=== PATIENT | male | born 1955 | race Caucasian/White ===

== ENCOUNTER 2017-05-19 08:14 | Day surgery (SDC) | payer BC ==
[2017-05-18 09:55] VITALS: BMI 29.5
[~2017-05-19 08:14] MED LIST: LACTATED RINGERS 1,000 ML IV SCH
[2017-05-19 08:40] VITALS: RESP 16; TEMP 98.2
[2017-05-19] MEDS ORDERED: LIDOCAINE 1% 20 ML VIAL (10MG/ML) FOR IV START INTRADERMA ONE (08:49)
[2017-05-19] MEDS ORDERED: LIDOCAINE 1% INJ 10MG/ML (20 ML MDV) ONE (09:33)
[2017-05-19] MEDS ORDERED: PROPOFOL 10 MG/ML 20 ML VIAL IV ONE (09:33)
--- NOTE | 2017-05-19 10:30 | P.PCN ---
Date of Procedure: 05/19/17 Procedure(s) Performed: Procedure: Total colonoscopy. Preoperative diagnosis: History of polyps and weight loss. Postoperative diagnosis: Diverticulosis with no evidence of acute diverticulitis , strictures, polyps or cancer. Preparation: HalfLytely prep. Sedation: Was provided by anesthesia. Brief clinical history: The patient is a 61-year-old male who is referred for this evaluation because of unexplained weight loss of close to 20 pounds. The patient has history of polyps. His last colonoscopy was in December 2012. Procedure: With the patient on his left lateral decubitus position and after informed consent and adequate sedation, the perianal area was inspected and it did not show any fissures or fistulas. There were no masses felt on digital rectal examination. The Olympus CFQ 160L video colonoscope was then inserted in the rectum in the usual fashion and advanced to the cecum. There were multiple diverticular orifices seen scattered in the sigmoid as well as few on the right side and around the hepatic flexure with no evidence of acute diverticulitis or strictures. The mucosa appeared healthy. No polyps or tumors were seen or other pathology. I retroflexed the endoscope in the rectum before the endoscope was withdrawn. The patient tolerated the procedure well. Plan: The patient was reassured. Discussed dietary measures. He will follow up with you early next week as planned and I suggested repeat colonoscopy in 5 years. Further workup for his weight loss will be planned and I will be happy to see him in the future if needed.
[2017-05-19 10:39] VITALS: BP 117/68; PULSE 51
== END 2017-05-19 10:40 | disposition home or self-care (01) ==
LOC: ORWHC2ENDO 08:14
DX: K57.30 Diverticulosis of large intestine without perforation or abscess without bleeding (principal); R63.4 Abnormal weight loss; Z86.010 Personal history of colon polyps; I10 Essential (primary) hypertension; Z79.899 Other long term (current) drug therapy; Z79.82 Long term (current) use of aspirin
CPT/HCPCS: 45378; J2001; J2704

== ENCOUNTER → 2017-12-02 | Outpatient (CLI) | payer BC ==
[2017-12-02 09:17] LABS: Calcium 9.1 mg/dL (8.4-10.2); Carbon Dioxide 27 mmol/L (22-30); Chloride 106 mmol/L (98-107); Phosphorus 3.4 mg/dL (2.5-4.5)
== END | disposition home or self-care (01) ==
LOC: LABWHC1 07:30
PROVIDERS: ATTEND Urology
DX: N20.0 Calculus of kidney (principal)
CPT/HCPCS: 36415; 82310; 82374; 82435; 82565; 83970; 84100; 84550

== ENCOUNTER → 2018-03-01 | Outpatient (CLI) | payer BC ==
--- NOTE | 2018-03-01 13:32 | US ---
EXAMINATION TYPE: US kidneys/renal and bladder DATE OF EXAM: 03/01/2018 COMPARISON: NONE CLINICAL HISTORY: N20.0 RT RENAL STONE. pt had rt sided lithotripsy EXAM MEASUREMENTS: Right Kidney: 9.9 x 4.5 x 5.8 cm Left Kidney: 10.6 x 6.0 x 6.2 cm Right Kidney: seen with a 1.9cm shadowing stone at the lower pole Left Kidney: wnl Bladder: wnl Bilateral Jets seen: right There is no evidence for hydronephrosis at this point in time. No masses are identified. The urinar y bladder is anechoic. Right ureteral jet only are seen. IMPRESSION: Nonobstructing calculus right kidney.
== END | disposition home or self-care (01) ==
LOC: RADUSWWP 11:49
PROVIDERS: ATTEND Urology
DX: N20.0 Calculus of kidney (principal)
CPT/HCPCS: 76770

== ENCOUNTER 2018-10-27 08:50 | Emergency (ER) | payer BC ==
[2018-10-27] MEDS ORDERED: ONDANSETRON 4 MG/2 ML VIAL IVP STA (09:09)
[2018-10-27] MEDS ORDERED: KETOROLAC 30 MG/ML 1 ML VIAL IVP STA (09:09)
[2018-10-27] MEDS ORDERED: PANTOPRAZOLE 40 MG/10 ML VIAL IVP STA (09:09)
[2018-10-27] MEDS ORDERED: SODIUM CHLORIDE 0.9% 1,000 ML IV STA ×2 (09:09)
--- NOTE | 2018-10-27 09:12 | ED ---
General Adult HPI - General Chief complaint: Back Pain/Injury Stated complaint: Lower Back/Side Pain Time Seen by Provider: 10/27/18 08:57 Source: patient, RN notes reviewed, old records reviewed Mode of arrival: ambulatory Limitations: no limitations - History of Present Illness Initial comments: Patient is a 8-year-old male who presents emergency department today with 3 days of progressive right-sided abdominal pain radiating towards his back. Patient states that he had some tenderness to palpation over his back last night. It seems to be worse in the evening time. Patient states he does have some nausea. He's had a history of kidney stones with this pain feels different than kidney stones. Patient states that he's had no recent fevers or chills. He reports normal urination in bowel habits. - Related Data Home Medications Medication Instructions Recorded Confirmed Aspirin [Adult Low Dose Aspirin EC] 81 mg PO DAILY 05/18/17 10/27/18 Glucosamine Sulfate 1,000 mg PO ONCE 05/18/17 10/27/18 Multivitamins, Thera [Multivitamin 1 tab PO DAILY 05/18/17 10/27/18 (formulary)] Nebivolol HCl [Bystolic] 10 mg PO QAM 05/18/17 10/27/18 Naproxen Sodium [Aleve] 440 mg PO Q8H 10/27/18 10/27/18 amLODIPine [Norvasc] 5 mg PO DAILY 10/27/18 10/27/18 Previous Rx's Medication Instructions Recorded Acetaminophen with Codeine 1 tab PO Q6H PRN 3 Days #12 tab 10/27/18 [Tylenol w/codeine #3] Ciprofloxacin HCl [Cipro] 500 mg PO BID #14 tab 10/27/18 Ibuprofen 600 mg PO TID #20 tablet 10/27/18 valACYclovir [Valtrex] 1,000 mg PO TID 7 Days 10/27/18 Allergies Allergy/AdvReac Type Severity Reaction Status Date / Time No Known Allergies Allergy Verified 10/27/18 09:35 Review of Systems ROS Statement: Those systems with pertinent positive or pertinent negative responses have been documented in the HPI. ROS Other: All systems not noted in ROS Statement are negative. Past Medical History Past Medical History: Hypertension Additional Past Medical History / Comment(s): HX POLYPS History of Any Multi-Drug Resistant Organisms: None Reported Past Surgical History: Orthopedic Surgery Additional Past Surgical History / Comment(s): LEFT HAND MIDDLE FINGER REATTACHED, COLONOSCOPIES Past Anesthesia/Blood Transfusion Reactions: Previous Problems w/ Anesthesia Additional Past Anesthesia/Blood Transfusion Reaction / Comment(s): LOW B/P Past Psychological History: No Psychological Hx Reported Smoking Status: Never smoker Past Alcohol Use History: Occasional Past Drug Use History: None Reported - Past Family History Father Family Medical History: Cancer Additional Family Medical History / Comment(s): COLON General Exam - General Exam Comments Initial Comments: 62-year-old male. Alert and oriented. No distress. Limitations: no limitations General appearance: alert, in no apparent distress Head exam: Present: atraumatic, normocephalic, normal inspection Eye exam: Present: normal appearance, PERRL, EOMI. Absent: scleral icterus, conjunctival injection, periorbital swelling ENT exam: Present: normal exam, mucous membranes moist Neck exam: Present: normal inspection. Absent: tenderness, meningismus, lymphadenopathy Respiratory exam: Present: normal lung sounds bilaterally. Absent: respiratory distress, wheezes, rales, rhonchi, stridor Cardiovascular Exam: Present: regular rate, normal rhythm, normal heart sounds. Absent: systolic murmur, diastolic murmur, rubs, gallop, clicks GI/Abdominal exam: Present: soft, tenderness (Right upper quadrant tenderness. Positive Meza sign.), normal bowel sounds. Absent: distended, guarding, rebound, rigid Extremities exam: Present: normal inspection, full ROM, normal capillary refill. Absent: tenderness, pedal edema, joint swelling, calf tenderness Back exam: Present: normal inspection Neurological exam: Present: alert, oriented X3, CN II-XII intact Psychiatric exam: Present: normal affect, normal mood Skin exam: Present: warm, dry, intact, normal color, rash (Erythematous papule- like area over the right upper quadrant. Concern for possibility of early shingles.) Course Vital Signs 10/27/18 10/27/18 08:51 12:02 Temperature 97.6 F 97.8 F Pulse Rate 69 52 L Respiratory 18 19 Rate Blood Pressure 133/73 146/96 O2 Sat by Pulse 100 96 Oximetry Medical Decision Making - Medical Decision Making 62 year old male with R back and abdominal pain. Patient has evidence of vesicular lesion and concern for early shingles. Patient labs were completed and he has UTI. Given rocephin. Disucssed with continued pain CT completed. CT is negative for acute process. Patient will be treated for shingles and antibiotisc for UTI. Culture pending. - Lab Data Result diagrams: 10/27/18 09:31 10/27/18 09:31 Lab Results 10/27/18 10/27/18 10/27/18 Range/Units 09:31 09:31 09:31 WBC 8.1 (3.8-10.6) k/uL RBC 5.07 (4.30-5.90) m/uL Hgb 16.4 (13.0-17.5) gm/dL Hct 48.6 (39.0-53.0) % MCV 95.9 (80.0-100.0) fL MCH 32.4 (25.0-35.0) pg MCHC 33.8 (31.0-37.0) g/dL RDW 12.4 (11.5-15.5) % Plt Count 267 (150-450) k/uL Neutrophils % 64 % Lymphocytes % 20 % Monocytes % 7 % Eosinophils % 5 % Basophils % 1 % Neutrophils # 5.1 (1.3-7.7) k/uL Lymphocytes # 1.6 (1.0-4.8) k/uL Monocytes # 0.6 (0-1.0) k/uL Eosinophils # 0.4 (0-0.7) k/uL Basophils # 0.1 (0-0.2) k/uL PT 10.3 (9.0-12.0) sec INR 1.0 (<1.2) APTT 22.5 (22.0-30.0) sec Sodium 139 (137-145) mmol/L Potassium 4.5 (3.5-5.1) mmol/L Chloride 105 (98-107) mmol/L Carbon Dioxide 27 (22-30) mmol/L Anion Gap 7 mmol/L BUN 18 (9-20) mg/dL Creatinine 0.86 (0.66-1.25) mg/dL Est GFR (CKD-EPI)AfAm >90 (>60 ml/min/1.73 sqM) Est GFR (CKD-EPI)NonAf >90 (>60 ml/min/1.73 sqM) Glucose 104 H (74-99) mg/dL Calcium 9.4 (8.4-10.2) mg/dL Total Bilirubin 0.8 (0.2-1.3) mg/dL AST 20 (17-59) U/L ALT 29 (21-72) U/L Alkaline Phosphatase 59 (38-126) U/L Total Protein 6.7 (6.3-8.2) g/dL Albumin 4.2 (3.5-5.0) g/dL Amylase 42 (30-110) U/L Lipase 109 (23-300) U/L Urine Color Urine Appearance (Clear) Urine pH (5.0-8.0) Ur Specific [place] (1.001-1.035) Urine Protein (Negative) Urine Glucose (UA) (Negative) Urine Ketones (Negative) Urine Blood (Negative) Urine Nitrite (Negative) Urine Bilirubin (Negative) Urine Urobilinogen (<2.0) mg/dL Ur Leukocyte Esterase (Negative) Urine RBC (0-5) /hpf Urine WBC (0-5) /hpf Urine Mucus (None) /hpf 10/27/18 Range/Units 09:31 WBC (3.8-10.6) k/uL RBC (4.30-5.90) m/uL Hgb (13.0-17.5) gm/dL Hct (39.0-53.0) % MCV (80.0-100.0) fL MCH (25.0-35.0) pg MCHC (31.0-37.0) g/dL RDW (11.5-15.5) % Plt Count (150-450) k/uL Neutrophils % % Lymphocytes % % Monocytes % % Eosinophils % % Basophils % % Neutrophils # (1.3-7.7) k/uL Lymphocytes # (1.0-4.8) k/uL Monocytes # (0-1.0) k/uL Eosinophils # (0-0.7) k/uL Basophils # (0-0.2) k/uL PT (9.0-12.0) sec INR (<1.2) APTT (22.0-30.0) sec Sodium (137-145) mmol/L Potassium (3.5-5.1) mmol/L Chloride (98-107) mmol/L Carbon Dioxide (22-30) mmol/L Anion Gap mmol/L BUN (9-20) mg/dL Creatinine (0.66-1.25) mg/dL Est GFR (CKD-EPI)AfAm (>60 ml/min/1.73 sqM) Est GFR (CKD-EPI)NonAf (>60 ml/min/1.73 sqM) Glucose (74-99) mg/dL Calcium (8.4-10.2) mg/dL Total Bilirubin (0.2-1.3) mg/dL AST (17-59) U/L ALT (21-72) U/L Alkaline Phosphatase (38-126) U/L Total Protein (6.3-8.2) g/dL Albumin (3.5-5.0) g/dL Amylase (30-110) U/L Lipase (23-300) U/L Urine Color Yellow Urine Appearance Clear (Clear) Urine pH 5.5 (5.0-8.0) Ur Specific [place] 1.017 (1.001-1.035) Urine Protein Negative (Negative) Urine Glucose (UA) Negative (Negative) Urine Ketones 1+ H (Negative) Urine Blood Negative (Negative) Urine Nitrite Negative (Negative) Urine Bilirubin Negative (Negative) Urine Urobilinogen <2.0 (<2.0) mg/dL Ur Leukocyte Esterase Moderate H (Negative) Urine RBC 1 (0-5) /hpf Urine WBC 22 H (0-5) /hpf Urine Mucus Rare H (None) /hpf - Radiology Data Radiology results: report reviewed CT shows nonobstructing right renal calculus. No evidence of hydronephrosis of either kidney. No urinary bladder colliculi. No acute intra-abdominal process seen to correlate with patient's flank pain. Pancolonic diverticulosis without diverticulitis. Disposition Clinical Impression: UTI (urinary tract infection), Shingles Disposition: HOME SELF-CARE Condition: Good Instructions (If sedation given, give patient instructions): Urinary Tract Infection in Men (ED), Shingles (ED) Additional Instructions: Patient has have close follow-up with primary care physician and urologist. Return to emergency department if any alarming signs or symptoms occur. Prescriptions: Ciprofloxacin HCl [Cipro] 500 mg PO BID #14 tab Ibuprofen 600 mg PO TID #20 tablet Acetaminophen with Codeine [Tylenol w/codeine #3] 1 tab PO Q6H PRN 3 Days #12 tab PRN Reason: Pain valACYclovir [Valtrex] 1,000 mg PO TID 7 Days Is patient prescribed a controlled substance at d/c from ED?: No Referrals: Leland Baker III, MD [Primary Care Provider] - 1-2 days Time of Disposition: 11:41
[2018-10-27 10:12] LABS: Basophils # (A) 0.1 k/uL (0-0.2); Basophils % (A) 1 %; Eosinophils # (A) 0.4 k/uL (0-0.7); Eosinophils % (A) 5 %; HCT 48.6 % (39.0-53.0); HGB 16.4 gm/dL (13.0-17.5); Lymphocytes # (A) 1.6 k/uL (1.0-4.8); Lymphocytes % (A) 20 %; MCH 32.4 pg (25.0-35.0); MCHC 33.8 g/dL (31.0-37.0); MCV 95.9 fL (80.0-100.0); Mean Platelet Volume 7.1; Monocytes # (A) 0.6 k/uL (0-1.0); Monocytes % (A) 7 %; Neutrophils # (A) 5.1 k/uL (1.3-7.7); Neutrophils % (A) 64 %; Platelet Count 267 k/uL (150-450); RBC 5.07 m/uL (4.30-5.90); RDW 12.4 % (11.5-15.5); WBC 8.1 k/uL (3.8-10.6)
[2018-10-27 10:14] LABS: ALT 29 U/L (21-72); AST 20 U/L (17-59); Albumin 4.2 g/dL (3.5-5.0); Alkaline Phosphatase 59 U/L (38-126); Amylase 42 U/L (30-110); Anion Gap 7 mmol/L; Blood Urea Nitrogen 18 mg/dL (9-20); Calcium 9.4 mg/dL (8.4-10.2); Carbon Dioxide 27 mmol/L (22-30); Chloride 105 mmol/L (98-107); Glucose 104 mg/dL (74-99); Lipase 109 U/L (23-300); Potassium 4.5 mmol/L (3.5-5.1); Sodium 139 mmol/L (137-145); Total Bilirubin 0.8 mg/dL (0.2-1.3); Total Protein 6.7 g/dL (6.3-8.2)
[2018-10-27 10:17] LABS: Appearance,Urine Clear (Clear); Bilirubin,Urine Negative (Negative); Blood,Urine Negative (Negative); Color,Urine Yellow; Glucose,Urine (UA) Negative (Negative); Ketones,Urine 1+ (Negative); Leukocyte Esterase,Urine Moderate (Negative); Mucus,Urine Rare /hpf; Nitrite,Urine Negative (Negative); PH, Urine 5.5 (5.0-8.0); Protein,Urine Negative (Negative); RBC,Urine 1 /hpf (0-5); Specific Gravity,Urine 1.017 (1.001-1.035); Urobilinogen,Urine <2.0 mg/dL (<2.0); WBC,Urine 22 /hpf (0-5)
[2018-10-27 10:19] LABS: Partial Thromboplastin Time 22.5 sec (22.0-30.0); Prothrombin Time 10.3 sec (9.0-12.0)
--- NOTE | 2018-10-27 11:18 | CT ---
EXAMINATION TYPE: CT abdomen pelvis wo con DATE OF EXAM: 10/27/2018 COMPARISON: 03/01/2018 HISTORY: Lower back/flank pain CT DLP: 859.8 mGycm Automated exposure control for dose reduction was used. TECHNIQUE: Helical acquisition of images was performed from the lung bases through the pelvis. FINDINGS: LUNG BASES: No significant abnormality is appreciated. LIVER/GB: Unremarkable unenhanced morphology of the liver. No cholelithiasis. PANCREAS: No significant abnormality is seen. SPLEEN: No significant abnormality is seen. Splenule is seen adjacent to the craig spleen. ADRENALS: No significant abnormality is seen. KIDNEYS: Nonobstructing right lower pole renal calculus measures 1.1 cm. Additional punctate 1 mm non obstructing right upper pole calculus is seen. No hydronephrosis is seen of either kidney. No left-si ded renal calculi. FREE AIR: No free air is visualized ADENOPATHY: No greater than 1 cm short axis lymph node in the abdomen or pelvis. REPRODUCTIVE ORGANS: Prostate gland is heterogenous containing central zone calcifications. URINARY BLADDER: No significant abnormality is seen. OSSEOUS STRUCTURES: No significant abnormality is seen. BOWEL: Numerous sigmoid and colonic diverticula are seen without pericolonic fat stranding. No dilat ed large or small bowel is seen. Slight gastric thickening is likely related to incomplete distention . IMPRESSION: 1. There is a nonobstructing right renal calculus. No evidence of hydronephrosis of either kidney. No urinary bladder calculi. No acute intra-abdominal process is seen to correspond with this patient's flank pain. 2. Pancolonic diverticulosis without evidence of acute diverticulitis.
[2018-10-27 12:03] VITALS: BP 146/96; PULSE 52; RESP 19; TEMP 97.8
== END 2018-10-27 12:04 | disposition home or self-care (01) ==
LOC: EC 08:50
DX: B02.9 Zoster without complications (principal); N39.0 Urinary tract infection, site not specified; N20.0 Calculus of kidney; K57.30 Diverticulosis of large intestine without perforation or abscess without bleeding; R11.0 Nausea; I10 Essential (primary) hypertension; Z79.1 Long term (current) use of non-steroidal anti-inflammatories (NSAID); Z79.82 Long term (current) use of aspirin; Z79.899 Other long term (current) drug therapy; Z80.0 Family history of malignant neoplasm of digestive organs
CPT/HCPCS: 36415; 80053; 82150; 83690; 85025; 85610; 85730; 81001; 87086; 74176; 99284; 96365; 96375 ×3; 96361 ×2; J2405; J0696; J1885; C9113

== ENCOUNTER → 2019-03-27 | Outpatient (CLI) | payer BC ==
--- NOTE | 2019-03-28 08:30 | US ---
EXAMINATION TYPE: US renals and bladder DATE OF EXAM: 03/27/2019 COMPARISON: US & CT CLINICAL HISTORY: N20.0 Kidney Stone. Patient states right renal stone removed since last imaging. EXAM MEASUREMENTS: Right Kidney: 10.5 x 5.1 x 5.9 cm Left Kidney: 10.5 x 6.2 x 6.4 cm Right Kidney: No hydronephrosis or masses seen Left Kidney: No hydronephrosis or masses seen Bladder: wnl Bilateral Jets seen: Yes There is no evidence for hydronephrosis at this point in time. No nephrolithiasis is seen. No kortney s are identified. The urinary bladder is anechoic. Bilateral ureteral jets are seen. IMPRESSION: No hydronephrosis or nephrolithiasis is seen of either kidney seen.
== END | disposition home or self-care (01) ==
LOC: RADUSMAIN 15:46
PROVIDERS: ATTEND Urology
DX: N20.0 Calculus of kidney (principal)
CPT/HCPCS: 76770

== ENCOUNTER 2019-08-13 12:54 | Emergency (ER) | payer BC ==
[2019-08-13 14:05] VITALS: BP 146/85; PULSE 62; RESP 20; TEMP 97.5
[2019-08-13] MEDS ORDERED: KETOROLAC 60 MG/2 ML VIAL IM STA (16:04)
--- NOTE | 2019-08-13 16:14 | ED ---
Recheck HPI - General Chief Complaint: Recheck/Abnormal Lab/Rx Stated Complaint: upper body pain/trouble sleeping Time Seen by Provider: 08/13/19 15:21 Source: patient Mode of arrival: ambulatory Limitations: no limitations - History of Present Illness Initial Comments: 63-year-old male with history of HTN, that patient states is controlled presenting for bilateral shoulder pain 3 months. Patient states that he has had outpatient workup for initially right shoulder pain that began in April. He states that he was sent to a academy education director as at the time of onset he had multiple joint pain including ankle knee and right shoulder. Patient states the multiple joint pain subsided however 2 weeks later he developed only right shoulder pain that increased with lifting overhead. Patient states he lies flat the scapula at night he has increasing pain. 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 Patient states that he now is feeling the same sensations left shoulder has limited range of motion. Patient states he was ordered a MRI of his right shoulder 3 weeks ago and had have prior authorization. He states he obtained that has a MRI scheduled for 645 this evening. Patient states now for the past 2 weeks he has had similar pain in the left shoulder so he would like an MRI of the shoulders well as was recommended by his physical therapist that he is seeing. Patient denies any chest pain shortness of breath he denies any epigastric pain jaw pain or radiation of the pain down the arm denies a paresthesias vomiting. Patient states that patient shots up the posterior right side neck with movement. Patient states when he is sitting up that pain is controlled its worse at ngiht when lying flat on the shoulder or when moving arms overhead. Patient denies fever, denies any other complaints. Remaining ROS (-). Upon arrival patient appears well, no acute distress. - Related Data Home Medications Medication Instructions Recorded Confirmed Aspirin [Adult Low Dose Aspirin EC] 81 mg PO DAILY 05/18/17 10/27/18 Glucosamine Sulfate 1,000 mg PO ONCE 05/18/17 10/27/18 Multivitamins, Thera [Multivitamin 1 tab PO DAILY 05/18/17 10/27/18 (formulary)] Nebivolol HCl [Bystolic] 10 mg PO QAM 05/18/17 10/27/18 Naproxen Sodium [Aleve] 440 mg PO Q8H 10/27/18 10/27/18 amLODIPine [Norvasc] 5 mg PO DAILY 10/27/18 10/27/18 Previous Rx's Medication Instructions Recorded Acetaminophen with Codeine 1 tab PO Q6H PRN 3 Days #12 tab 10/27/18 [Tylenol w/codeine #3] Ciprofloxacin HCl [Cipro] 500 mg PO BID #14 tab 10/27/18 Ibuprofen 600 mg PO TID #20 tablet 10/27/18 valACYclovir [Valtrex] 1,000 mg PO TID 7 Days 10/27/18 oxyCODONE HCL/ACETAMINOPHEN 1 tab PO Q6HR PRN 3 Days #12 tab 08/13/19 [Percocet 10-325 mg] Allergies Allergy/AdvReac Type Severity Reaction Status Date / Time No Known Allergies Allergy Verified 08/13/19 14:05 Review of Systems ROS Statement: Those systems with pertinent positive or pertinent negative responses have been documented in the HPI. ROS Other: All systems not noted in ROS Statement are negative. Past Medical History Past Medical History: Hypertension Additional Past Medical History / Comment(s): HX POLYPS, kidney stones History of Any Multi-Drug Resistant Organisms: None Reported Past Surgical History: Orthopedic Surgery Additional Past Surgical History / Comment(s): LEFT HAND MIDDLE FINGER REATTACHED, COLONOSCOPIES Past Anesthesia/Blood Transfusion Reactions: Previous Problems w/ Anesthesia Additional Past Anesthesia/Blood Transfusion Reaction / Comment(s): LOW B/P Past Psychological History: No Psychological Hx Reported Smoking Status: Never smoker Past Alcohol Use History: Occasional Past Drug Use History: None Reported - Past Family History Father Family Medical History: Cancer Additional Family Medical History / Comment(s): COLON General Exam - General Exam Comments Initial Comments: General: The patient is awake and alert, in no distress, and does not appear acutely ill. Eye: +3 mm pupils are equal, round and reactive to light, extra-ocular movements are intact. No nystagmus. There is normal conjunctiva bilaterally. No signs of icterus. Ears, nose, mouth and throat: There are moist mucous membranes and no oral lesions. Neck: The neck is supple, there is no tenderness or JVD. No midlines tenderness to palpation of the cervical spine, Cardiovascular: There is a regular rate and rhythm. No murmur, rub or gallop is appreciated. Respiratory: Lungs are clear to auscultation, respirations are non-labored, breath sounds are equal. No wheezes, stridor, rales, or rhonchi. Gastrointestinal: Soft, non-distended, non-tender abdomen without masses or organomegaly noted. There is no rebound or guarding present. Musculoskeletal: Normal inspection of the UE b/l. Patient tender with overhead motion and can only raise arms b/l to the levels of the shoulder. Patient has full strength of the UE b/l. Sensation intact. Radial pulses equal bilaterally 2+. Neurological: A&O x 3. CN II-XII intact grossly, There are no obvious motor or sensory deficits. Coordination appears grossly intact. Speech is normal. Skin: Skin is warm and dry and no rashes or lesions are noted. Psychiatric: Cooperative, appropriate mood & affect, normal judgment. Limitations: no limitations Course Vital Signs 08/13/19 14:01 Temperature 97.5 F L Pulse Rate 62 Respiratory 20 Rate Blood Pressure 146/85 O2 Sat by Pulse 94 L Oximetry Medical Decision Making - Medical Decision Making 63-year-old male presenting today for chief complaint of bilateral shoulder pain. Ongoing for months the right shoulder initially began hurting 2 weeks of the the left. This is very slight examination patient cannot range his shoulde rs overhead without sniffed and pain. Given patient's age and history of hypertension should have medication for b/l shoulder pain. Patient EKG no acute findings. CXR clear. Troponin (-). No CP SOB. Dimer elevated. CTA (-). patient has outpatient MRI, called Dr. Chris office spearking with Corin about obtaining c-spine and left shoulder, she states the patient had have prior authorization for these imaging studies. 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 Patient is agreeable to this patient and her last contact was discharge appearing well, requesting discharge for his MRI. Patient case discussed with Dr. Ojeda prior to d/c Ventricular rate 50 beats minute, KS interval 162 ms, QRS duration 102 ms, QT/QTC 444/435. Sinus bradycardia no ST elevation or depression there is note premature ventricular complexes. Otherwise this appears to be normal EKG. Normal R-wave progression. - Lab Data Result diagrams: 08/13/19 16:50 08/13/19 16:50 Lab Results 08/13/19 08/13/19 08/13/19 Range/Units 16:50 16:50 16:50 WBC 11.4 H (3.8-10.6) k/uL RBC 4.76 (4.30-5.90) m/uL Hgb 14.7 (13.0-17.5) gm/dL Hct 43.7 (39.0-53.0) % MCV 91.8 (80.0-100.0) fL MCH 30.9 (25.0-35.0) pg MCHC 33.6 (31.0-37.0) g/dL RDW 14.7 (11.5-15.5) % Plt Count 380 (150-450) k/uL Neutrophils % 63 % Lymphocytes % 24 % Monocytes % 5 % Eosinophils % 5 % Basophils % 0 % Neutrophils # 7.2 (1.3-7.7) k/uL Lymphocytes # 2.8 (1.0-4.8) k/uL Monocytes # 0.6 (0-1.0) k/uL Eosinophils # 0.5 (0-0.7) k/uL Basophils # 0.1 (0-0.2) k/uL D-Dimer 0.61 H (<0.60) mg/L FEU Sodium 140 (137-145) mmol/L Potassium 4.3 (3.5-5.1) mmol/L Chloride 107 (98-107) mmol/L Carbon Dioxide 24 (22-30) mmol/L Anion Gap 9 mmol/L BUN 18 (9-20) mg/dL Creatinine 0.69 (0.66-1.25) mg/dL Est GFR (CKD-EPI)AfAm >90 (>60 ml/min/1.73 sqM) Est GFR (CKD-EPI)NonAf >90 (>60 ml/min/1.73 sqM) Glucose 93 (74-99) mg/dL Calcium 9.3 (8.4-10.2) mg/dL Total Bilirubin 0.5 (0.2-1.3) mg/dL AST 25 (17-59) U/L ALT 18 (4-49) U/L Alkaline Phosphatase 75 (38-126) U/L Troponin I (0.000-0.034) ng/mL Total Protein 6.8 (6.3-8.2) g/dL Albumin 4.0 (3.5-5.0) g/dL 08/13/19 Range/Units 16:50 WBC (3.8-10.6) k/uL RBC (4.30-5.90) m/uL Hgb (13.0-17.5) gm/dL Hct (39.0-53.0) % MCV (80.0-100.0) fL MCH (25.0-35.0) pg MCHC (31.0-37.0) g/dL RDW (11.5-15.5) % Plt Count (150-450) k/uL Neutrophils % % Lymphocytes % % Monocytes % % Eosinophils % % Basophils % % Neutrophils # (1.3-7.7) k/uL Lymphocytes # (1.0-4.8) k/uL Monocytes # (0-1.0) k/uL Eosinophils # (0-0.7) k/uL Basophils # (0-0.2) k/uL D-Dimer (<0.60) mg/L FEU Sodium (137-145) mmol/L Potassium (3.5-5.1) mmol/L Chloride (98-107) mmol/L Carbon Dioxide (22-30) mmol/L Anion Gap mmol/L BUN (9-20) mg/dL Creatinine (0.66-1.25) mg/dL Est GFR (CKD-EPI)AfAm (>60 ml/min/1.73 sqM) Est GFR (CKD-EPI)NonAf (>60 ml/min/1.73 sqM) Glucose (74-99) mg/dL Calcium (8.4-10.2) mg/dL Total Bilirubin (0.2-1.3) mg/dL AST (17-59) U/L ALT (4-49) U/L Alkaline Phosphatase (38-126) U/L Troponin I <0.012 (0.000-0.034) ng/mL Total Protein (6.3-8.2) g/dL Albumin (3.5-5.0) g/dL Disposition Clinical Impression: Shoulder pain Disposition: HOME SELF-CARE Condition: Good Instructions (If sedation given, give patient instructions): Rotator Cuff Injury (ED) Additional Instructions: Please use medication as discussed. Please follow-up with family doctor in the next 2 days. Please return to emergency room if the symptoms increase or worsen or for any other concerns. Prescriptions: oxyCODONE HCL/ACETAMINOPHEN [Percocet 10-325 mg] 1 tab PO Q6HR PRN 3 Days #12 tab PRN Reason: Pain Is patient prescribed a controlled substance at d/c from ED?: No Referrals: Leland Baker III, MD [Primary Care Provider] - 1-2 days Time of Disposition: 18:44
[2019-08-13 17:00] LABS: Basophils # (A) 0.1 k/uL (0-0.2); Basophils % (A) 0 %; Eosinophils # (A) 0.5 k/uL (0-0.7); Eosinophils % (A) 5 %; HCT 43.7 % (39.0-53.0); HGB 14.7 gm/dL (13.0-17.5); Lymphocytes # (A) 2.8 k/uL (1.0-4.8); Lymphocytes % (A) 24 %; MCH 30.9 pg (25.0-35.0); MCHC 33.6 g/dL (31.0-37.0); MCV 91.8 fL (80.0-100.0); Mean Platelet Volume 7.9; Monocytes # (A) 0.6 k/uL (0-1.0); Monocytes % (A) 5 %; Neutrophils # (A) 7.2 k/uL (1.3-7.7); Neutrophils % (A) 63 %; Platelet Count 380 k/uL (150-450); RBC 4.76 m/uL (4.30-5.90); RDW 14.7 % (11.5-15.5); WBC 11.4 k/uL (3.8-10.6)
[2019-08-13 17:10] LABS: ALT 18 U/L (4-49); AST 25 U/L (17-59); African American GFR (CKD) >90 (>60 ml/min/1.73 sqM); Alkaline Phosphatase 75 U/L (38-126); Anion Gap 9 mmol/L; Blood Urea Nitrogen 18 mg/dL (9-20); Calcium 9.3 mg/dL (8.4-10.2); Carbon Dioxide 24 mmol/L (22-30); Chloride 107 mmol/L (98-107); Glucose 93 mg/dL (74-99); Non-African American GFR(CKD) >90 (>60 ml/min/1.73 sqM); Potassium 4.3 mmol/L (3.5-5.1); Sodium 140 mmol/L (137-145); Total Bilirubin 0.5 mg/dL (0.2-1.3); Total Protein 6.8 g/dL (6.3-8.2)
--- NOTE | 2019-08-13 17:12 | XR ---
EXAMINATION TYPE: XR chest 2V DATE OF EXAM: 08/13/2019 COMPARISON: NONE HISTORY: Chest pain shoulder pain TECHNIQUE: 2 views FINDINGS: Heart is normal. Lungs are clear of infiltrate. There is no pleural effusion. There are no hilar masses. Bony thorax is intact. IMPRESSION: No active cardiopulmonary disease. Normal heart.
--- NOTE | 2019-08-13 18:35 | CT ---
EXAMINATION TYPE: CT angio chest DATE OF EXAM: 08/13/2019 COMPARISON: None HISTORY: Elevated d-dimer CT DLP: 608.7 mGycm Automated exposure control for dose reduction was used. CONTRAST: Performed with IV Contrast, patient injected with 80 mL of Isovue 370. There are 3-D post processed images. The lungs are clear of consolidation. There is no pleural effusion. There is no pericardial effusion. There is no evidence of a pulmonary mass. There is mild subsegmental atelectasis at the lung bases. Heart size is normal. There is no pericardial effusion. There are no hilar masses. There is no medias tinal adenopathy. Thoracic aorta appears normal. There is no aneurysm or dissection. There is normal contrast opacification of the pulmonary arteries. There are no filling defects. The bony thorax is intact. There is spurring in the lower thoracic spine. IMPRESSION: Negative exam. No evidence of pulmonary embolism.
== END 2019-08-13 18:50 | disposition home or self-care (01) ==
LOC: EC 12:54
DX: M25.511 Pain in right shoulder (principal); M25.512 Pain in left shoulder; G47.9 Sleep disorder, unspecified; I10 Essential (primary) hypertension; Z79.82 Long term (current) use of aspirin; Z79.1 Long term (current) use of non-steroidal anti-inflammatories (NSAID); Z79.899 Other long term (current) drug therapy
CPT/HCPCS: 36415; 93005; 85379; 80053; 84484; 85025; 71046; 71275; 99284; 96372; J1885; Q9967

== ENCOUNTER → 2019-08-13 | Outpatient (CLI) | payer BC ==
--- NOTE | 2019-08-13 22:52 | MR ---
EXAMINATION TYPE: MR shoulder RT wo con DATE OF EXAM: 08/13/2019 COMPARISON: NONE HISTORY: Rt shoulder pain per patient. Rotator cuff syndrome per order TECHNIQUE: Multiplanar, multisequence imaging of the right shoulder is performed without contrast. FINDINGS: Rotator Cuff: Increased signal distal supraspinatus and to lesser degree distal infraspinatus tendons without discrete tear. Increased signal and thickening of subscapularis tendon. The Rotator cuff mus hunter bulk is preserved. Acromioclavicular Joint: Moderate narrowing with moderate to severe capsular hypertrophy. Possible un derlying fat plane as there is mild spurring. Glenohumeral Joint: Moderate to severe narrowing with moderate joint effusion. No significant spurrin g. Labrum: The superior labrum shows increased signal felt to reflect degenerative tear. Biceps Tendon: The long head of biceps is in normal location within bicipital groove. Surrounding flu id may be products of joint effusion. Bone marrow signal: No focal abnormal marrow signal is appreciated. Other: No additional significant abnormality is appreciated. IMPRESSION: 1. Tendinosis distal supraspinatus tendon without discrete tear. 2. Moderate to severe degenerative changes acromioclavicular and glenohumeral joints as detailed timur gillespie
== END ==
LOC: RADMRIMAIN 18:51
PROVIDERS: ATTEND Physician Assistant
DX: M75.81 Other shoulder lesions, right shoulder (principal); M19.011 Primary osteoarthritis, right shoulder

== ENCOUNTER → 2019-08-27 | Outpatient (CLI) | payer BC ==
--- NOTE | 2019-08-27 15:17 | XR ---
Bilateral shoulders HISTORY: Bilateral shoulder pain 3 views of each shoulder are submitted on a total 6 images Bone mineralization, joint spaces and alignment are remarkable for arthropathy at the acromioclavicul ar joints, some joint space narrowing present at the glenohumeral joint on the left greater than righ t. Lung apices as visualized are normal. No fracture or dislocation. IMPRESSION: Osteoarthritis.
== END | disposition home or self-care (01) ==
LOC: RADXRMAIN 11:19
PROVIDERS: ATTEND Family Medicine
DX: M19.012 Primary osteoarthritis, left shoulder (principal); M19.011 Primary osteoarthritis, right shoulder

== ENCOUNTER → 2020-12-19 | Outpatient (CLI) | payer BC ==
--- NOTE | 2020-12-20 03:23 | MR ---
EXAMINATION TYPE: MR neck wo/w con DATE OF EXAM: 12/19/2020 COMPARISON: None HISTORY: Palpable mass right cheek/jaw, marker placed. CONTRAST: Standard multiplanar, multisequence MRI departmental protocol utilizing 11 mL intravenous Gadavist ga dolinium contrast. There is 2.5 cm rounded area of increased signal on the T2 images on the lateral aspect of the face o n the right side. This appears to lie within the lateral aspect of the right parotid gland. This has decreased signal on the T1 images. The contrast images appear to show fairly uniform enhancement of t he mass. The lesion is sharply marginated. There is minimal lobulation. Left parotid gland has normal signal pattern. The submandibular salivary glands are symmetric. The ma ndible appears intact. Maxilla appears intact. Zygomatic arches appear normal. There is no evidence o f sinusitis. There is normal signal pattern in the mastoid sinuses. I see no significant cervical dustin nopathy. IMPRESSION: Sharply marginated circumscribed and slightly lobulated mass that appears to be within the right paro tid gland and shows fairly uniform enhancement. This is consistent with a solid parotid tumor.
== END | disposition home or self-care (01) ==
LOC: RADMRIMAIN 15:03
PROVIDERS: ATTEND Otolaryngology
DX: K11.8 Other diseases of salivary glands (principal)
CPT/HCPCS: 70543; A9585

== ENCOUNTER 2022-07-02 10:07 | Day surgery (SDC) | payer BC ==
[2022-07-01 09:33] VITALS: BMI 29.5
[2022-07-02] MEDS ORDERED: LACTATED RINGERS 1,000 ML IV ONE (11:37)
[2022-07-02 11:42] VITALS: TEMP 97
[2022-07-02] MEDS ORDERED: PROPOFOL 10 MG/ML 20 ML VIAL IV ONE (12:53)
--- NOTE | 2022-07-02 13:09 | P.PCN ---
Date of Procedure: 07/02/22 Procedure(s) Performed: BRIEF HISTORY: Patient is a 66-year-old pleasant white male scheduled for an elective colonoscopy as a part of evaluation of prior history of colon polyps and family history of colon cancer. Father was diagnosed with colon cancer at age 71. PROCEDURE PERFORMED: Colonoscopywith biopsy. PREOPERATIVE DIAGNOSIS: History of colon polyps and family history of colon cancer. IV sedation per Anesthesia. PROCEDURE: After informed consent was obtained, the patient, was brought into the endoscopy unit. IV sedation was administered by Anesthesia under continuous monitoring. Digital rectal examination was normal. Initially the Olympus CF-160 flexible video colonoscope was then inserted in the rectum, gradually advanced into the cecum without any difficulty. Careful examination was performed as the scope was gradually being withdrawn. Ileocecal valve and the appendiceal orifice were visualized and appeared normal. Prep was excellent. Mucosa of the cecum, ascending colon, transverse colon, descending colon, sigmoid colon, and rectum appeared normal.in the distal rectum there was a 5 mm polyp that was removed by cold biopsy. Scattered sigmoid diverticula seen. Retroflexion was performed in the rectum and no lesions were seen. The patient tolerated the procedure well. IMPRESSION: 5 mm distal rectal polyp status post cold biopsy Scattered sigmoid diverticulosis RECOMMENDATIONS: Findings of this examination were discussed with the patient as well as his family..He was advised to follow with the biopsy results and have a repeat colonoscopy in 5 years because of the family history of colon cancer
[2022-07-02 13:26] VITALS: RESP 16
[2022-07-02 13:40] VITALS: BP 136/84; PULSE 47
== END 2022-07-02 14:13 | disposition home or self-care (01) ==
LOC: ORWHC2ENDO 10:07
PROVIDERS: ATTEND Internal Medicine Gastroenterology
DX: Z12.11 Encounter for screening for malignant neoplasm of colon (principal); K62.1 Rectal polyp; K57.30 Diverticulosis of large intestine without perforation or abscess without bleeding; I10 Essential (primary) hypertension; Z80.0 Family history of malignant neoplasm of digestive organs; Z79.899 Other long term (current) drug therapy; Z86.010 Personal history of colon polyps; Z98.890 Other specified postprocedural states
CPT/HCPCS: 88305; 45380; J2704

== ENCOUNTER → 2024-10-12 | Outpatient (CLI) | payer MEDICARE ==
--- NOTE | 2024-10-12 10:06 | US ---
EXAMINATION TYPE: US abdomen limited DATE OF EXAM: 10/12/2024 COMPARISON: CT abdomen and pelvis October 27, 2018 CLINICAL INDICATION: Male, 68 years old with history of R19.00 ABDOMINAL WALL BULGE, SWELLING MASS LUCIEN MP; Right lower flank palpable TECHNIQUE: Sonographic images taken FINDINGS: Multiple sonographic images taken of area of concern. Echogenic nonvascular lesion seen = 0.9 x 1.2 x 0.8 cm IMPRESSION: Suspect a benign roughly 1.0 cm subcutaneous lipoma in the anterior abdominal wall. Furt her follow-up imaging advised if lesion is felt to enlarge or become painful. [facility], , 10/12/2024 10:03 AM
== END | disposition home or self-care (01) ==
LOC: RADUSWWP 08:48
PROVIDERS: ATTEND Internal Medicine
DX: R19.00 Intra-abdominal and pelvic swelling, mass and lump, unspecified site (principal)
CPT/HCPCS: 76705